=== PATIENT | male | born 1970 | race Hispanic/Latino ===

== ENCOUNTER 2018-08-29 16:48 | Outpatient (RCR) | payer BC ==
[~2018-08-29 16:48] MED LIST: CLONAZEPAM1 MG PO; DOMPERIDONE PO; GABAPENTIN100 MG PO; HUMULIN R100 UNIT/2 SC; LANTUS SOL300 UNIT/3 SC; LEVEMIR 3M100 UNITS/ SC; LISINOPRIL10 MG PO; PANTOPRAZOLE SO40 MG PO; PROMETHAZINE HC25 M1 PO; REGLAN10 MG PO; TRAMADOL HCL50 M1 PO; ULTRAM 50MG50 MG PO; Z.0.CARAFATE1 GM/10 PO; Z.0.CIPROFLOXACIN500 PO; Z.0.COLACE100 MG PO; Z.0.CYMBALTA20 MG PO; Z.0.DOMPERIDONE1 GM PO; Z.0.GABAPENTIN300 MG PO; Z.0.LISINOPRIL10 MG PO; Z.0.PANTOPRAZOLE SO4 PO; Z.0.PHENERGAN25 M1 PO; Z.1.HUMALOG100 UNIT/ SC
== END 2018-09-14 ==
LOC: PT 16:48
PROVIDERS: ATTEND Specialist
DX: M25.511 Pain in right shoulder (principal); M25.512 Pain in left shoulder; M62.81 Muscle weakness (generalized); M54.5 Low back pain; S33.5XXA Sprain of ligaments of lumbar spine, initial encounter

== ENCOUNTER 2022-04-21 16:51 | Observation (INO) | payer BC ==
[~2022-04-21] VITALS: Ht 165.1 cm; Wt 77.1 kg
[2022-04-21] MEDS ORDERED: SODIUM CHLORIDE 0.9% 1000ML 1,000 ML IV SCH (17:30)
[2022-04-21 18:19] LABS: ANION GAP 18.2 mmol/L (8-16); CALCIUM 9.5 mg/dL (8.4-10.2); CREATININE, SERUM 1.07 mg/dL (0.72-1.25)
[2022-04-21 18:21] LABS: POTASSIUM 5.2 mmol/L (3.5-5.1)
[2022-04-21] MEDS ORDERED: SOD POLYSTYRENE SULFONATE SUSP 15 GM/60 ML BTL PO ONE (18:30)
[2022-04-21] MEDS: SODIUM CHLORIDE 0.9% 1000ML 1,000 ML IV SCH ×2 (18:45→23:29)
[2022-04-21] MEDS ORDERED: HYDRALAZINE HCL 20 MG/ML VIAL IV PRN (23:15)
[2022-04-21] MEDS ORDERED: ACETAMINOPHEN 325 MG TAB PO PRN (23:15)
[2022-04-21] MEDS ORDERED: POLYETHYLENE GLYCOL 3350 17 GM PACK PO PRN (23:15)
[2022-04-21] MEDS ORDERED: METOPROLOL TARTRATE INJ 1 MG/ML VIAL IV PRN (23:15)
[2022-04-21] MEDS ORDERED: TEMAZEPAM 7.5 MG CAP PO PRN (23:15)
[2022-04-21] MEDS ORDERED: ONDANSETRON HCL INJ 2MG/ML 2ML 2 MG/ML VIAL IV PRN (23:15)
[2022-04-21] MEDS ORDERED: SOD POLYSTYRENE SULFONATE SUSP 15 GM/60 ML BTL ONE (23:44)
[2022-04-22] MEDS ORDERED: METFORMIN HCL500 MG PO (00:55)
[2022-04-22] MEDS ORDERED: VITAMIN D310 MCG PO (00:55)
[2022-04-22] MEDS ORDERED: TOUJEO SOL300 UNIT/1 SQ (00:55)
[2022-04-22] MEDS ORDERED: NOVOLOG100 UNITS1 SQ (00:55)
[2022-04-22 01:00] VITALS: BP 149/92
[2022-04-22] MEDS ORDERED: DEXTROSE 50% SYRINGE 50 ML IV PRN (01:15)
[2022-04-22] MEDS: SODIUM CHLORIDE 0.9% 1000ML 1,000 ML IV SCH ×2 (01:52→08:55)
[2022-04-22 04:00] VITALS: BP 146/88
[2022-04-22 07:04] LABS: BASOPHILS # (AUTO) 0.1 (0.0-0.1); BASOPHILS % 0.9 % (0.0-1.0); EOSINOPHILS # (AUTO) 0.3 (0.0-0.4); EOSINOPHILS % 4.9 % (0.0-6.0); HEMATOCRIT 44.5 % (38.2-49.6); HEMOGLOBIN 15.1 g/dL (14.0-18.0); LYMPHOCYTES # (AUTO) 2.1 (1.0-3.2); LYMPHOCYTES % 36.3 % (18.0-39.1); MEAN CORPUSCULAR HEMOGLOBIN 30.3 pg (28-32); MEAN CORPUSCULAR HGB CONC 33.9 g/dL (31-35); MEAN CORPUSCULAR VOLUME 89.4 fL (81-99); MONOCYTES # (AUTO) 0.6 (0.2-0.8); MONOCYTES % 10.2 % (4.4-11.3); NEUTROPHILS # (AUTO) 2.8 (2.1-6.9); NEUTROPHILS % 47.2 % (38.7-80.0); PLATELET COUNT 277 x10e3/uL (140-360); RED BLOOD COUNT 4.98 x10e6/uL (4.3-5.7); RED CELL DISTRIBUTION WIDTH 11.9 % (11.7-14.4)
[2022-04-22 07:12] LABS: ANION GAP 15.6 mmol/L (8-16); CALCIUM 10.5 mg/dL (8.4-10.2); CREATININE, SERUM 1.02 mg/dL (0.72-1.25); POTASSIUM 4.6 mmol/L (3.5-5.1)
[2022-04-22 07:14] LABS: CHOL/HDL RATIO 2.7 (3.9-4.7); MAGNESIUM 1.6 MG/DL (1.3-2.1); PHOSPHORUS 3.6 MG/DL (2.3-4.7)
[2022-04-22] MEDS ORDERED: FAMOTIDINE 20 MG TAB PO SCH (07:30)
[2022-04-22] MEDS ORDERED: INSULIN REGULAR, HUMAN 100 UNIT/1 ML SQ SCH (07:30)
[2022-04-22 07:40] LABS: THYROID STIMULATING HORMONE 1.082 uIU/mL (0.350-4.940)
[2022-04-22 07:45] VITALS: BP 150/91
[2022-04-22] MEDS ORDERED: BENADRYL25 M1 PO (08:14)
[2022-04-22] MEDS ORDERED: LISINOPRIL 10 MG TAB PO SCH ×2 (09:00)
[2022-04-22] MEDS ORDERED: PANTOPRAZOLE SOD 40 MG TABEC PO SCH (09:00)
[2022-04-22] MEDS ORDERED: GABAPENTIN 300 MG CAP PO SCH (09:00)
[2022-04-22] MEDS ORDERED: CLONAZEPAM 1 MG TAB PO SCH (09:00)
[2022-04-22] MEDS ORDERED: DOCUSATE SODIUM 100 MG CAP PO SCH (09:00)
[2022-04-22] MEDS ORDERED: POTASSIUM CHLORIDE 20 MEQ TAB CR PO SCH (09:00)
[2022-04-22] MEDS ORDERED: TEMAZEPAM 15 MG CAP PO PRN (09:15)
[2022-04-22] MEDS ORDERED: MAGNESIUM SULFATE 2GM/50ML 50 ML IV ONE (09:30)
[2022-04-22] MEDS ORDERED: ONDANSETRON HCL 4 MG ORAL DISINTEGRATING TAB PO PRN (12:45)
== END 2022-04-22 12:15 | disposition home or self-care (01) ==
LOC: ER 17:00 → ERHOLD 18:34 → MED/SURG 04-22 00:32
PROVIDERS: ADMIT Internal Medicine; ATTEND Internal Medicine
DX: E87.5 Hyperkalemia (principal); E87.1 Hypo-osmolality and hyponatremia; E11.43 Type 2 diabetes mellitus with diabetic autonomic (poly)neuropathy; E11.65 Type 2 diabetes mellitus with hyperglycemia; K31.84 Gastroparesis; E29.1 Testicular hypofunction; R63.4 Abnormal weight loss; E83.42 Hypomagnesemia; Z72.89 Other problems related to lifestyle; Z96.82 Presence of neurostimulator; Z79.4 Long term (current) use of insulin; Z86.16 Personal history of COVID-19; Z80.3 Family history of malignant neoplasm of breast; Z80.1 Family history of malignant neoplasm of trachea, bronchus and lung; Z80.42 Family history of malignant neoplasm of prostate; Z80.8 Family history of malignant neoplasm of other organs or systems; Z20.822 Contact with and (suspected) exposure to COVID-19; Z68.28 Body mass index [BMI] 28.0-28.9, adult
CPT/HCPCS: 36415 ×2; 80048 ×2; 80061; 82948; 83036; 83735; 84100; 84443; 85025; 93005; 94799; 99284; G0378 ×2; J1817; J3475; J7030 ×2; S0164; U0002